=== PATIENT | female | born 1965 | race Caucasian/White ===

== ENCOUNTER 2017-11-07 05:34 | Emergency (ER) | payer OTHER, MEDICAID ==
--- NOTE | 2017-11-07 05:43 | CPEKG ---
Heart Rate: 67 RR Interval: 896 P-R Interval: 164 QRSD Interval: 76 QT Interval: 424 QTC Interval: 448 P [place]: 34 QRS [place]: 32 T Wave [place]: 34 EKG Severity - BORDERLINE ECG - EKG Impression: SINUS RHYTHM EKG Impression: PROBABLE LEFT ATRIAL ABNORMALITY EKG Impression: BORDERLINE T ABNORMALITIES, ANTERIOR LEADS Electronically Signed By: Silvina Cruz 07-Nov-2017 07:11:08
[2017-11-07 06:06] LABS: PLATELET COUNT 274 10^3/uL (150-400)
--- NOTE | 2017-11-07 06:12 | EDPHY ---
H & P Stated Complaint: Chest pressure, pain Time Seen by Provider: 11/07/17 05:39 HPI/ROS: HPI The patient presents from longterm for chest pain which began yesterday afternoon. She developed a sharp intense pain of her anterior chest while at rest. This lasted for few minutes and then was followed by a mild dull pressure-like sensation she felt throughout her anterior chest and left arm. This has been present for the last several hours and prevented her from sleeping last night. She does say that she has a lot of social stressors. While incarcerated, she is worried about losing her home, job, access to her family. This pain was associated with mild shortness of breath. She has not had any nausea, vomiting , dizziness, diaphoresis. She says she has some sort of cardiac history. I reviewed her records in [facility] and she did present to [facility] for chest pain in May of 2016 and did have a stress test which was negative. Her chest pain was thought to be related to anxiety.. REVIEW OF SYSTEMS Constitutional: No fever, no chills. Eyes: No discharge. ENT: No sore throat. Cardiovascular: Positive for chest pain, no palpitations. Respiratory: No cough, no shortness of breath. Gastrointestinal: No abdominal pain, no vomiting. Genitourinary: No hematuria. Musculoskeletal: No back pain. Skin: No rashes. Neurological: No headache. PMHx: History of cervical spinal fusion, prior chest pain Soc Hx: Incarcerated currently PHYSICAL General Appearance: Alert, no distress Eyes: Pupils equal and round no pallor or injection ENT, Mouth: Mucous membranes moist Respiratory: There are no retractions, lungs are clear to auscultation Cardiovascular: Regular rate and rhythm Gastrointestinal: Abdomen is soft and non-tender, no masses, bowel sounds normal Neurological: A&O, moves all extremities Skin: Warm and dry, no rashes Musculoskeletal: Neck is supple non tender Extremities: symmetrical, full range of motion Psychiatric: Patient is oriented X 3, there is no agitation Source: Patient Exam Limitations: No limitations - Personal History LMP (Females 10-55): Hysterectomy Current Tetanus Diphtheria and Acellular Pertussis (TDAP): Yes - Medical/Surgical History Hx Asthma: Yes Hx Chronic Respiratory Disease: No Hx Diabetes: No Hx Cardiac Disease: Yes Hx Renal Disease: No Hx Cirrhosis: No Hx Alcoholism: No Hx HIV/AIDS: No Hx Splenectomy or Spleen Trauma: No Other PMH: pmh- seizures r/t TBI 2007, htn, asthma, SC at 26 yo, C1 herniation. psh- hysterectomy - Social History Smoking Status: Current every day smoker Constitutional: Initial Vital Signs Temperature (C) 36.7 C 11/07/17 05:37 Heart Rate 68 11/07/17 05:37 Respiratory Rate 20 11/07/17 05:37 Blood Pressure 150/86 H 11/07/17 05:37 O2 Sat (%) 99 11/07/17 05:37 O2 Delivery Mode Room Air Allergies/Adverse Reactions: codeine Allergy (Verified 11/07/17 05:37) erythromycin base Allergy (Verified 11/07/17 05:37) Home Medications: Medication Instructions Recorded I Cant Remember 09/18/14 Medical Decision Making - Diagnostics EKG Interpretation: EKG: Complete interpretation has been separately recorded in the [facility] archive. Summary impression: Normal sinus rhythm with T-wave flattening in lead 3, no old for comparison Imaging Results: Chest x-ray two view shows no cardiomegaly, no infiltrate, interpreted by me, radiology interpretation is pending. Imaging: I viewed and interpreted images myself Differential Diagnosis: This is a 52-year-old female who presents with chest pain which began yesterday afternoon has been constant ever since though improved in terms of intensity. This is associated with shortness of breath. On exam, she is well-appearing with normal vital signs, she is not in any distress. Differential diagnosis includes anxiety attack, ACS, GERD, costochondritis. In the emergency department chest x-ray and EKG were checked and were unremarkable. Labs were checked including a troponin these were normal as well. Given ongoing chest pain with normal troponin, I doubt that this is ACS. She can be discharged back to longterm appropriately. I am most suspicious for anxiety attack giving large amount of social stressors in her life. - Data Points Laboratory Results: Laboratory Results 11/07/17 05:50 11/07/17 05:50 11/07/17 11/07/17 05:50 05:50 WBC 5.70 10^3/uL 10^3/uL (3.80-9.50) RBC 4.62 10^6/uL 10^6/uL (4.18-5.33) Hgb 14.2 g/dL g/dL (12.6-16.3) Hct 42.9 % % (38.0-47.0) MCV 92.9 fL fL (81.5-99.8) MCH 30.7 pg pg (27.9-34.1) MCHC 33.1 g/dL g/dL (32.4-36.7) RDW 12.2 % % (11.5-15.2) Plt Count 274 10^3/uL 10^3/uL (150-400) MPV 10.1 fL fL (8.7-11.7) Neut % (Auto) 41.8 % % (39.3-74.2) Lymph % (Auto) 41.1 % % (15.0-45.0) [place] % (Auto) 13.0 % % (4.5-13.0) Eos % (Auto) 2.5 % % (0.6-7.6) Baso % (Auto) 1.2 % % (0.3-1.7) Nucleat RBC Rel Count 0.0 % % (0.0-0.2) Absolute Neuts (auto) 2.39 10^3/uL 10^3/uL (1.70-6.50) Absolute Lymphs (auto) 2.34 10^3/uL 10^3/uL (1.00-3.00) Absolute Monos (auto) 0.74 10^3/uL 10^3/uL (0.30-0.80) Absolute Eos (auto) 0.14 10^3/uL 10^3/uL (0.03-0.40) Absolute Basos (auto) 0.07 10^3/uL 10^3/uL (0.02-0.10) Absolute Nucleated RBC 0.00 10^3/uL 10^3/uL (0-0.01) Immature Gran % 0.4 % % (0.0-1.1) Immature Gran # 0.02 10^3/uL 10^3/uL (0.00-0.10) Sodium 145 mEq/L mEq/L (135-145) Potassium 4.4 mEq/L mEq/L (3.5-5.2) Chloride 104 mEq/L mEq/L (97-110) Carbon Dioxide 28 mEq/l mEq/l (22-31) Anion Gap 13 mEq/L mEq/L (8-16) BUN 12 mg/dL mg/dL (7-23) Creatinine 0.7 mg/dL mg/dL (0.6-1.0) Estimated GFR > 60 Glucose 77 mg/dL mg/dL (70-100) Calcium 10.2 mg/dL mg/dL (8.5-10.4) Troponin I Pending Departure - Departure Disposition: Law Enforcement/Court/[facility] Clinical Impression: Chest pain Qualifiers: Chest pain type: unspecified Qualified Code(s): R07.9 - Chest pain, unspecified Condition: Good Instructions: Chest Pain (ED), Anxiety (ED) Additional Instructions: I recommend that you continue to take aspirin 81 mg once daily. You should return to the emergency department if your worse in any way. Otherwise you should follow up with the geriatric social work professor as listed below. Referrals: Case Shrestha MD [Medical Doctor] - As per Instructions
[2017-11-07 07:05] VITALS: BP 134/88
== END 2017-11-07 07:05 ==
DX: R07.9 Chest pain, unspecified (principal); I10 Essential (primary) hypertension; I25.2 Old myocardial infarction; J45.909 Unspecified asthma, uncomplicated; F17.200 Nicotine dependence, unspecified, uncomplicated